=== PATIENT | female | born 1955 | race Caucasian/White ===

== ENCOUNTER 2017-06-01 09:33 | Day surgery (SDC) | payer BC ==
[~2017-06-01] VITALS: Ht 157.5 cm; Wt 80.7 kg
[2017-06-01 10:20] VITALS: BP 142/73
[2017-06-01] MEDS ORDERED: NEURONTIN100 MG ORAL (10:35)
[2017-06-01] MEDS ORDERED: TRAMADOL HCL50 MG ORAL (10:35)
[2017-06-01] MEDS ORDERED: PERCOCET 10-321 EAC1 PO (10:35)
--- NOTE | 2017-06-01 10:50 | Pre-Procedure Note/Attestation ---
Pre-Procedure Note/Attestation Complete Prior to Procedure Planned Procedure: bilateral Procedure Narrative: bilateral C5-6, C6-7, C7-T1 Facet block Indications for Procedure Pre-Operative Diagnosis: lumbar spondylosis Attestation I attest that I discussed the nature of the procedure; its benefits; risks and complications; and alternatives (and the risks and benefits of such alternatives ), prior to the procedure, with the patient (or the patient's legal community engagement representative). I attest that, if there was a reasonable possibility of needing a blood transfusion, the patient (or the patient's legal community engagement representative) was given the [facility] standardized written summary, pursuant to the [place] Baldo Blood Safety Act ([place] Health and Safety Code # 1645, as amended). I attest that I re-evaluated the patient just prior to the surgery and that there has been no change in the patient's H&P, except as documented below: GLENN DANIEL M.D. Jun 01, 2017 10:50
--- NOTE | 2017-06-01 10:56 | Short Stay Surgery H&P ---
History of Present Illness History of Present Illness Chief Complaint neck pain HPI Nicolasa Juarez is a 61 year old female who was admitted on for Neck Pain Patient History Allergies: Coded Allergies: Sulfa (Sulfonamide Antibiotics) (Verified Allergy, 06/01/17) Medication History Scheduled Gabapentin* (Neurontin*), 300 MG ORAL THREE TIMES A DAY, (Reported) Oxycodone HCl/Acetaminophen (Percocet 10-325 mg Tablet), 1 EACH PO PRN, ( Reported) Scheduled PRN Tramadol Hcl* (Ultram*), 50 MG ORAL Q6H PRN for For Pain, (Reported) Review of Systems Cardiovascular: Reports: hypertension Skeletal: Reports: osteroarthritis, spinal disc disease 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 Attestation Response: yes GLENN DANIEL M.D. Jun 01, 2017 10:56
--- NOTE | 2017-06-01 10:58 | Brief Operative Note ---
Immediate Post Operative Note Operative Note Pre-op Diagnosis: lumbar spondylosis Procedure: bilateral C5-6, C6-7, C7-T1 facet block Post-op Diagnosis: Lumbar spondylosis Post-op Diagnosis: same as pre-op Surgeon: Glenn Villarreal Anesthesia: local Specimen: none Complications: none Condition: stable Fluids: NS Estimated Blood Loss: none Drains: none Implant(s) used?: GLENN Macario M.D. Jun 01, 2017 10:58
[2017-06-01] MEDS ORDERED: Kenalog-40 1ml Vial IARTIC ONE (11:30)
[2017-06-01] MEDS ORDERED: Kenalog-40 5ml vial IARTIC SCH (11:30)
[2017-06-01] MEDS ORDERED: Lidocaine 1% Plain 30 ml INJ SCH (11:30)
[2017-06-01] MEDS ORDERED: Bupivacaine 0.5% Inj 30 ml vial INJ SCH (11:30)
[2017-06-01 11:40] VITALS: BP 176/90
[2017-06-01 12:00] VITALS: BP 164/88
--- NOTE | 2017-06-04 21:00 | Operative Note - PDOC ---
Operative Note Operative Note Date of Operation/Procedure: Jun 01, 2017 Chief Complaint: neck pain Pre-op Diagnosis: cervical spondylosis Procedure: bilateral C5-6, C6-7, C7-T1 facet block Post-op Diagnosis: cervical spondylosis Post-op Diagnosis: same as pre-op Operative Findings: consistent w/pre-op dx studies Surgeon: Glenn Villarreal Anesthesia: local Specimen: none Complications: none Condition: stable Fluids: NS Estimated Blood Loss: none Drains: none Implant(s) used?: No Indications for Procedure neck pain, cervical spondylosis Description of Procedure Time-out was taken to identify the correct patient, procedure and side prior to starting the procedure. With the patient lying in a prone position, the patient was prepped and draped in the usual sterile fashion using chloroprep and a fenestrated drape. The above-named levels were determined under fluoroscopy with a pillar view. Local anesthetic 1% lidocaine was given by raising a wheal and going down to the hub of a 27-gauge 1.25- inch needle. The 27-gauge 3.5-inch Quincke needle was introduced into each facet joint above. After a negative aspiration to make sure that there was no intravascular placement, Omnipaque 240 was injected to confirm intraarticular spread and confirm no vascular runoff. Medications ( kenalog 3mg, 0.5% bupivacaine 0.5ml) was then injected slowly into each facet joint. The procedure was completed without complications and was tolerated well. The patient was monitored after the procedure. The patient (or responsible green party) was given post-procedure and discharge instructions to follow at home. The patient was discharged in stable condition. A follow-up appointment was made. GLENN VILLARREAL M.D. Jun 04, 2017 21:00
== END 2017-06-01 12:15 | disposition home or self-care (01) ==
LOC: EDSTATUS 09:33 → RAD 09:33
DX: M47.892 Other spondylosis, cervical region (principal); Z88.2 Allergy status to sulfonamides; I10 Essential (primary) hypertension

== ENCOUNTER 2017-12-03 07:36 | Outpatient (CLI) | payer BC ==
[~2017-12-03] VITALS: Ht 30.5 cm; Wt 0.5 kg
[~2017-12-03 07:36] MED LIST: NEURONTIN100 MG ORAL; PERCOCET 10-321 EAC1 PO; TRAMADOL HCL50 MG ORAL
[2017-12-03 08:45] VITALS: BP 184/90
--- NOTE | 2017-12-03 09:23 | Pre-Procedure Note/Attestation ---
Pre-Procedure Note/Attestation Complete Prior to Procedure Planned Procedure: bilateral Procedure Narrative: Cervical Facet Blocks Indications for Procedure Pre-Operative Diagnosis: Cervical Spondylosis Attestation I attest that I discussed the nature of the procedure; its benefits; risks and complications; and alternatives (and the risks and benefits of such alternatives ), prior to the procedure, with the patient (or the patient's legal billing representative). I attest that, if there was a reasonable possibility of needing a blood transfusion, the patient (or the patient's legal billing representative) was given the [facility] standardized written summary, pursuant to the [place] Baldo Blood Safety Act ([place] Health and Safety Code # 1645, as amended). I attest that I re-evaluated the patient just prior to the surgery and that there has been no change in the patient's H&P, except as documented below: Vik Martin MD Dec 03, 2017 09:23
--- NOTE | 2017-12-03 09:26 | Brief Operative Note ---
Immediate Post Operative Note Operative Note Pre-op Diagnosis: Cervical Spondylosis Post-op Diagnosis: same as pre-op Findings: consistent w/pre-op dx studies Surgeon: Veronica Anesthesia: local Specimen: none Complications: none Condition: stable Fluids: none Estimated Blood Loss: none Drains: none Implant(s) used?: No Vik Martin MD Dec 03, 2017 09:26
--- NOTE | 2017-12-03 09:33 | Short Stay Surgery H&P ---
History of Present Illness History of Present Illness Chief Complaint Bilateral Neck pain HPI Nicolasa Juarez is a 62 year old female with a multi year history of neck pain who was admitted on for Cervical Pain here for Cervical Facet Blocks Patient History Allergies: Coded Allergies: SULFA (SULFONAMIDE ANTIBIOTICS) (Verified Allergy, Unknown, 06/01/17) PAST MEDICAL HISTORY: (1) Total knee replacement status (2) Hypothyroid Medication History Scheduled Gabapentin* (Neurontin*), 300 MG ORAL THREE TIMES A DAY, (Reported) Oxycodone HCl/Acetaminophen (Percocet 10-325 mg Tablet), 1 EACH PO PRN, ( Reported) Scheduled PRN Tramadol Hcl* (Ultram*), 50 MG ORAL Q6H PRN for For Pain, (Reported) Review of Systems Cardiovascular: Reports: no symptoms Respiratory: Reports: no symptoms Skeletal: Reports: osteroarthritis Gastrointestinal: Reports: no symptoms Genitourinary: Reports: no symptoms Neurologic: Reports: no symptoms Endocrine: Reports: thyroid Hematologic: Reports: no symptoms Physical Exam Skin: normal HENT: normal Heart: normal Lungs: normal Abdomen: normal Extremities: normal Genitourinary: normal Plan Plan of Care Cervical Facet Blocks Preop Interventions NPO p MN Summary of Findings Cervical Spondylosis Attestation Are the patient's medical conditions optimized for surgery? Attestation Response: yes Vik Martin MD Dec 03, 2017 09:33
[2017-12-03] MEDS ORDERED: Kenalog-40 1ml Vial IARTIC ONE (09:45)
[2017-12-03] MEDS ORDERED: Bupivacaine 0.5% Inj 30 ml vial INJ ONE (09:45)
[2017-12-03] MEDS ORDERED: Kenalog-40 1ml Vial ONE (09:45)
[2017-12-03] MEDS ORDERED: Lidocaine 1% Plain 30 ml INJ ONE (09:45)
[2017-12-03 09:57] VITALS: BP 184/90
[2017-12-03 10:00] VITALS: BP 181/96
== END 2017-12-03 09:36 | disposition home or self-care (01) ==
LOC: RAD 07:36
DX: M47.892 Other spondylosis, cervical region (principal); Z96.659 Presence of unspecified artificial knee joint; E03.9 Hypothyroidism, unspecified; Z88.2 Allergy status to sulfonamides
CPT/HCPCS: 62321; J2001; J3301; J3490